=== PATIENT | female | born 1930 | race Native Hawaiian/Other Pacific Islander ===

== ENCOUNTER 2016-07-15 08:23 | Outpatient (CLI) | payer OTHER, MEDICARE ==
[~2016-07-15 08:23] MED LIST: ALLO100T22 PO; ANAS1TAB PO; ARIMIDEX1 MG OR; CITRACA1 OR; COLC0.6T6 PO; COMBIGAN0.2 MG/0.5 OP; DULO60CA2 OR; LISI20TA11 PO; METF500T PO; SIMV20TA2 PO; TYLENOL ARTH650 MG OR; ULTRAM50 MG OR
[2016-07-15 08:58] LABS: PLATELET COUNT 269 K/uL (152-353)
== END 2016-07-15 19:30 | disposition home or self-care (01) ==
LOC: LABW 08:23
PROVIDERS: Internal Medicine
DX: E11.9 Type 2 diabetes mellitus without complications (principal)
CPT/HCPCS: 36415; 80053; 80061; 81000; 82043; 82570; 83036; 84439; 84443; 85027

== ENCOUNTER 2016-12-18 09:17 | Emergency (ER) | payer OTHER, MEDICARE ==
[~2016-12-18] VITALS: Ht 157.5 cm; Wt 86.2 kg
[2016-12-18 09:25] VITALS: BP 111/82; TEMP 97.9
[2016-12-18] MEDS ORDERED: ENTERIC COATED325 MG PO (09:38)
[2016-12-18] MEDS ORDERED: SIMV20TA2 PO (09:41)
[2016-12-18] MEDS ORDERED: XALATAN0.005 % OP (09:43)
[2016-12-18] MEDS ORDERED: COSOPT1 ML OP (09:44)
== END 2016-12-18 11:00 | disposition home or self-care (01) ==
LOC: ED 09:17
DX: N12 Tubulo-interstitial nephritis, not specified as acute or chronic (principal)
CPT/HCPCS: 81000; 96372; 99283; J0696

== ENCOUNTER 2017-01-03 11:46 | Outpatient (CLI) | payer OTHER, MEDICARE ==
[~2017-01-03 11:46] MED LIST changes: +COSOPT1 ML OP; +ENTERIC COATED325 MG PO; +XALATAN0.005 % OP
== END 2017-01-03 11:47 | disposition short-term general hospital (02) ==
LOC: AMB 11:46
DX: R04.0 Epistaxis (principal)
CPT/HCPCS: A0425; A0429

== ENCOUNTER 2017-01-03 11:48 | Emergency (ER) | payer OTHER, MEDICARE ==
[~2017-01-03] VITALS: Ht 157.5 cm; Wt 87.1 kg
[2017-01-03 13:17] LABS: PLATELET COUNT 384 K/uL (152-353)
[2017-01-03 13:23] LABS: POTASSIUM 4.3 mmol/L (3.6-5.2)
[2017-01-03 13:36] LABS: PARTIAL THROMBOPLASTIN TIME 22.8 SECONDS (24.5-33.6)
[2017-01-03 14:20] VITALS: BP 120/76; TEMP 98.2
== END 2017-01-03 14:21 | disposition home or self-care (01) ==
LOC: ED 11:48
PROVIDERS: Specialist
DX: R04.0 Epistaxis (principal); S01.21XA Laceration without foreign body of nose, initial encounter; X58.XXXA Exposure to other specified factors, initial encounter; Y92.89 Other specified places as the place of occurrence of the external cause
CPT/HCPCS: 36415; 80048; 85002; 85027; 85610; 85730; 99283

== ENCOUNTER 2017-01-21 10:23 | Outpatient (CLI) | payer OTHER, MEDICARE | END 2017-01-21 18:56 | disposition home or self-care (01) | LOC: RAD 10:23 | DX: R22.41 Localized swelling, mass and lump, right lower limb (principal) ==

== ENCOUNTER 2017-07-21 09:47 | Outpatient (CLI) | payer OTHER | END 2017-07-21 11:30 | disposition home or self-care (01) | LOC: MAMMO 09:47 | DX: Z85.3 Personal history of malignant neoplasm of breast (principal) ==

== ENCOUNTER 2017-12-05 15:09 | Outpatient (CLI) | payer OTHER | END 2017-12-05 20:36 | disposition home or self-care (01) | LOC: RAD 15:09 | DX: M25.511 Pain in right shoulder (principal) ==

== ENCOUNTER 2017-12-12 07:47 | Outpatient (CLI) | payer OTHER | END 2017-12-12 21:57 | disposition home or self-care (01) | LOC: RAD 07:47 | DX: M25.511 Pain in right shoulder (principal) ==

== ENCOUNTER 2017-12-26 09:24 | Outpatient (CLI) | payer OTHER | END 2017-12-26 21:12 | disposition home or self-care (01) | LOC: RAD 09:24 | DX: M25.511 Pain in right shoulder (principal) ==

== ENCOUNTER 2018-02-16 16:52 | Outpatient (CLI) | payer OTHER ==
[2018-02-16] MEDS ORDERED: PRINIVIL10 MG PO (17:25)
== END 2018-02-16 16:53 | disposition short-term general hospital (02) ==
LOC: AMB 16:52
DX: R20.2 Paresthesia of skin (principal)
CPT/HCPCS: A0425; A0427

== ENCOUNTER 2018-02-16 17:00 | Emergency (ER) | payer OTHER ==
[~2018-02-16] VITALS: Ht 157.5 cm; Wt 77.1 kg
[2018-02-16] MEDS ORDERED: PRINIVIL10 MG PO (17:25)
[2018-02-16 19:10] VITALS: BP 152/87; TEMP 97.6
== END 2018-02-16 19:10 | disposition home or self-care (01) ==
LOC: ED 17:00
DX: R53.1 Weakness (principal)
CPT/HCPCS: 99283

== ENCOUNTER 2018-08-17 08:15 | Outpatient (CLI) | payer OTHER ==
[~2018-08-17 08:15] MED LIST changes: +PRINIVIL10 MG PO
== END 2018-08-17 19:12 | disposition home or self-care (01) ==
LOC: MAMMO 08:15
DX: Z85.3 Personal history of malignant neoplasm of breast (principal)

== ENCOUNTER 2018-10-27 09:08 | Emergency (ER) | payer OTHER ==
[~2018-10-27] VITALS: Ht 157.5 cm; Wt 83.9 kg
[2018-10-27 09:15] VITALS: TEMP 97.8
[2018-10-27 10:37] VITALS: BP 166/78
== END 2018-10-27 10:37 | disposition home or self-care (01) ==
LOC: ED 09:08
DX: S00.03XA Contusion of scalp, initial encounter (principal); W01.10XA Fall on same level from slipping, tripping and stumbling with subsequent striking against unspecified object, initial encounter; Y92.240 Courthouse as the place of occurrence of the external cause
CPT/HCPCS: 99282

== ENCOUNTER 2018-12-07 09:41 | Outpatient (CLI) | payer OTHER ==
[2018-12-07 10:00] LABS: PLATELET COUNT 405 K/uL (152-353)
[2018-12-07 10:22] LABS: POTASSIUM 4.7 mmol/L (3.6-5.2)
== END 2018-12-07 23:33 | disposition home or self-care (01) ==
LOC: LABW 09:41
PROVIDERS: Internal Medicine
DX: E11.9 Type 2 diabetes mellitus without complications (principal)
CPT/HCPCS: 36415; 80053; 80061; 81000; 83036; 84439; 84443; 85027

== ENCOUNTER 2019-10-15 07:03 | Outpatient (CLI) | payer OTHER ==
[2019-10-15 08:06] LABS: PLATELET COUNT 322 K/uL (152-353)
== END 2019-10-15 19:49 | disposition home or self-care (01) ==
LOC: LABW 07:03
PROVIDERS: Internal Medicine
DX: E11.9 Type 2 diabetes mellitus without complications (principal); E03.8 Other specified hypothyroidism; I10 Essential (primary) hypertension; M10.00 Idiopathic gout, unspecified site; D69.3 Immune thrombocytopenic purpura
CPT/HCPCS: 36415; 80053; 80061; 82043; 82570; 83036; 84439; 84443; 84550; 85027

== ENCOUNTER 2019-10-16 09:10 | Outpatient (CLI) | payer OTHER | END 2019-10-16 19:08 | disposition home or self-care (01) | LOC: MAMMO 09:10 | DX: R92.8 Other abnormal and inconclusive findings on diagnostic imaging of breast (principal) | CPT/HCPCS: G0279 ==

== ENCOUNTER 2020-02-19 13:45 | Inpatient (IN) | payer OTHER ==
[~2020-02-19] VITALS: Ht 157.5 cm; Wt 85.8 kg
[2020-02-19 13:45] VITALS: BP 174/79; TEMP 98.4
[2020-02-19 14:24] LABS: PLATELET COUNT 395 K/uL (152-353)
[2020-02-19 14:35] LABS: POTASSIUM 4.6 mmol/L (3.6-5.2)
[2020-02-19 16:28] VITALS: BP 123/63
[2020-02-19 19:00] VITALS: BP 128/51
[2020-02-19 23:05] VITALS: BP 137/72; TEMP 98.3; Ht 157.5 cm; Wt 85.8 kg
[2020-02-19 23:47] VITALS: BP 121/47; TEMP 98.2
[2020-02-20 04:00] VITALS: BP 122/65; TEMP 98.1
[2020-02-20 06:00] LABS: PLATELET COUNT 352 K/uL (152-353)
[2020-02-20 06:15] LABS: POTASSIUM 4.5 mmol/L (3.6-5.2)
[2020-02-20 08:00] VITALS: BP 124/67; TEMP 98
[2020-02-20] MEDS ORDERED: GLIP10TA55 PO (11:56)
[2020-02-20 12:00] VITALS: BP 125/55; TEMP 98.3
[2020-02-20] MEDS ORDERED: CEFDINIR300 MG PO (15:58)
[2020-02-20] MEDS ORDERED: ZITHROMAX500 MG PO (15:59)
[2020-02-20 16:00] VITALS: BP 129/54; TEMP 97.5
== END 2020-02-20 15:15 | disposition home or self-care (01) | DRG 177 ==
LOC: ED 13:45 → MED/SURG 18:10
PROVIDERS: Internal Medicine Endocrinology, Diabetes & Metabolism; ADMIT Family Medicine
DX: U07.1 COVID-19 (principal); J18.8 Other pneumonia, unspecified organism; E11.9 Type 2 diabetes mellitus without complications; I10 Essential (primary) hypertension
CPT/HCPCS: 80053; 81000; 83605; 85027; 87040; 87205; 87635; 96365; 99284; J0456; U0003

== ENCOUNTER 2020-03-11 09:42 | Outpatient (CLI) | payer OTHER ==
[~2020-03-11 09:42] MED LIST changes: +CEFDINIR300 MG PO; +GLIP10TA55 PO; +ZITHROMAX500 MG PO
== END 2020-03-11 20:17 | disposition home or self-care (01) ==
LOC: RAD 09:42
DX: U07.1 COVID-19 (principal)

== ENCOUNTER 2020-03-25 10:52 | Outpatient (CLI) | payer OTHER | END 2020-03-25 19:04 | disposition home or self-care (01) | LOC: LAB 10:52 | DX: Z20.828 Contact with and (suspected) exposure to other viral communicable diseases (principal) | CPT/HCPCS: 36415; 86769 ==

== ENCOUNTER 2020-06-12 09:15 | Emergency (ER) | payer OTHER ==
[~2020-06-12] VITALS: Ht 157.5 cm; Wt 85.7 kg
[2020-06-12 09:15] VITALS: TEMP 98.7
[2020-06-12] MEDS ORDERED: BIOTIN MAXI10000 MC1 PO (09:43)
[2020-06-12 10:02] LABS: PLATELET COUNT 321 K/uL (152-353)
[2020-06-12 10:11] LABS: POTASSIUM 4.2 mmol/L (3.6-5.2)
[2020-06-12 12:30] VITALS: BP 167/56
== END 2020-06-12 13:20 | disposition home or self-care (01) ==
LOC: ED 09:19
PROVIDERS: Emergency Medicine Emergency Medical Services
DX: R50.9 Fever, unspecified (principal); Z03.818 Encounter for observation for suspected exposure to other biological agents ruled out
CPT/HCPCS: 80053; 81000; 83605; 83690; 85027; 87040; 87635; 96360; 99284; U0003

== ENCOUNTER 2020-11-07 09:21 | Outpatient (CLI) | payer OTHER ==
[~2020-11-07 09:21] MED LIST changes: +BIOTIN MAXI10000 MC1 PO
[2020-11-17 07:44] LABS: PLATELET COUNT 385 K/uL (152-353)
[2020-11-17 07:45] LABS: POTASSIUM 4.8 mmol/L (3.6-5.2)
== END 2020-11-07 17:00 | disposition home or self-care (01) ==
LOC: LABW 09:21
PROVIDERS: ATTEND Internal Medicine
DX: E11.9 Type 2 diabetes mellitus without complications (principal)
CPT/HCPCS: 36415; 80053; 80061; 81000; 83036; 84439; 84443; 85027

== ENCOUNTER 2020-11-20 14:06 | Outpatient (CLI) | payer OTHER | END 2020-11-20 19:51 | disposition home or self-care (01) | LOC: MAMMO 14:06 | PROVIDERS: ATTEND Internal Medicine | DX: Z85.3 Personal history of malignant neoplasm of breast (principal) ==

== ENCOUNTER 2021-09-01 17:29 | Outpatient (CLI) | payer OTHER ==
[2021-09-01 18:35] LABS: POTASSIUM 4.8 mmol/L (3.6-5.2)
[2021-09-01 18:49] LABS: PLATELET COUNT 344 K/uL (152-353)
== END 2021-09-01 18:57 | disposition home or self-care (01) ==
LOC: LAB 17:29
PROVIDERS: ATTEND Internal Medicine
DX: R30.0 Dysuria (principal); E11.9 Type 2 diabetes mellitus without complications
CPT/HCPCS: 80053; 80061; 81000; 83036; 84439; 84443; 85007; 85027; 87086; 87088

== ENCOUNTER 2021-09-21 13:24 | Emergency (ER) | payer OTHER ==
[~2021-09-21] VITALS: Ht 157.5 cm; Wt 85.7 kg
[2021-09-21 13:24] VITALS: TEMP 98.7
[2021-09-21 14:31] LABS: PLATELET COUNT 295 K/uL (152-353)
[2021-09-21 14:33] LABS: POTASSIUM 4.8 mmol/L (3.6-5.2)
[2021-09-21 16:11] VITALS: BP 154/74
== END 2021-09-21 16:11 | disposition home or self-care (01) ==
LOC: ED 13:24
PROVIDERS: Emergency Medicine Emergency Medical Services
DX: Z04.89 Encounter for examination and observation for other specified reasons (principal)
CPT/HCPCS: 80048; 81000; 85027; 99283

== ENCOUNTER 2022-01-15 12:36 | Outpatient (CLI) | payer OTHER | END 2022-01-15 21:51 | disposition home or self-care (01) | LOC: MAMMO 12:36 | PROVIDERS: ATTEND Internal Medicine | DX: Z12.31 Encounter for screening mammogram for malignant neoplasm of breast (principal); Z85.3 Personal history of malignant neoplasm of breast; Z08 Encounter for follow-up examination after completed treatment for malignant neoplasm | CPT/HCPCS: G0279 ==

== ENCOUNTER 2022-01-20 08:54 | Outpatient (CLI) | payer OTHER ==
[2022-01-20 09:28] LABS: PLATELET COUNT 380 K/uL (152-353)
[2022-01-20 09:52] LABS: POTASSIUM 4.6 mmol/L (3.6-5.2)
== END 2022-01-20 19:06 | disposition home or self-care (01) ==
LOC: RAD 08:54
PROVIDERS: ATTEND Nurse Practitioner Family
DX: M79.675 Pain in left toe(s) (principal); M79.674 Pain in right toe(s); Z79.899 Other long term (current) drug therapy; E11.9 Type 2 diabetes mellitus without complications; I10 Essential (primary) hypertension; M19.90 Unspecified osteoarthritis, unspecified site
CPT/HCPCS: 36415; 80053; 80061; 82306; 83036; 84439; 84443; 84550; 85027; 85652; 86430